=== PATIENT | male | born 1950 | race Caucasian/White ===

== ENCOUNTER 2024-12-10 15:34 | Emergency (ER) | payer OTHER, BC ==
[~2024-12-10] VITALS: Ht 188 cm; Wt 133.8 kg
[2024-12-10 15:35] VITALS: TEMP 98.7
[2024-12-10] MEDS ORDERED: TDAP [DIPH/PERTUSSIS/TET] 0.5 ML VIAL IM ONE (16:22)
[2024-12-10] MEDS ORDERED: oxyCODONE/APAP (5/325 MG) 1 UDTAB TABLET ONE (16:24)
[2024-12-10] MEDS: oxyCODONE/APAP (5/325 MG) 1 UDTAB TABLET PO ONE (16:31)
[2024-12-10] MEDS: TDAP [DIPH/PERTUSSIS/TET] 0.5 ML VIAL IM ONE (16:33)
[2024-12-10] MEDS ORDERED: LIDOCAINE 2% 20 ML MDV ONE (16:45)
[2024-12-10] MEDS ORDERED: MORPHINE SULFATE INJ 4 MG/ML DISP.SYRIN ONE (18:29)
[2024-12-10] MEDS: MORPHINE SULFATE INJ 4 MG/ML DISP.SYRIN IM ONE (18:38)
[2024-12-10 19:48] VITALS: BP 130/62; O2SAT 97
[2024-12-10] MEDS ORDERED: KETO10TA2 PO (19:50)
[2024-12-10] MEDS ORDERED: CYCL5TAB PO (19:50)
== END 2024-12-10 19:48 | disposition home or self-care (01) ==
LOC: ER 15:37
DX: S01.81XA Laceration without foreign body of other part of head, initial encounter (principal); I10 Essential (primary) hypertension; E11.9 Type 2 diabetes mellitus without complications; I48.91 Unspecified atrial fibrillation; Z79.01 Long term (current) use of anticoagulants; Z88.0 Allergy status to penicillin; V43.52XA Car driver injured in collision with other type car in traffic accident, initial encounter; Y93.89 Activity, other specified; Y92.410 Unspecified street and highway as the place of occurrence of the external cause; Y99.8 Other external cause status; Z60.2 Problems related to living alone
CPT/HCPCS: 12013; 70450; 70486; 71045; 72125; 72128; 90471; 90715; 96372; 99285; A6403; J2270; J3490